=== PATIENT | female | born 1935 | race Caucasian/White ===

== ENCOUNTER 2017-03-21 04:13 | Inpatient (IN) | payer OTHER ==
[~2017-03-21] VITALS: Ht 162.6 cm; Wt 84.5 kg
[2017-03-21 04:57] LABS: RED BLOOD COUNT 5.1 M/UL (4.00-5.10); WHITE BLOOD COUNT 11.6 K/UL (4.5-11.0)
[2017-03-21] MEDS ORDERED: SYNTHROID112 MCG PO (13:34)
[2017-03-21] MEDS ORDERED: PAXIL20 MG PO (13:34)
[2017-03-21] MEDS ORDERED: NORVASC 5 MG TAB5 MG PO (13:36)
[2017-03-21] MEDS ORDERED: VALSARTAN-HCTZ1 EAC1 PO (13:36)
[2017-03-21] MEDS ORDERED: ATIVAN 1MG TABLE1 MG PO (13:37)
[2017-03-21] MEDS ORDERED: CIPRO500 MG PO (13:38)
[2017-03-21] MEDS ORDERED: MELOXICAM7.5 MG PO (13:38)
[2017-03-22 01:45] LABS: ACINETOBACTER BAUMANNII Not Detected (Negative); CANDIDA ALBICANS Not Detected (Negative); CANDIDA KRUSEI Not Detected (Negative); CANDIDA TROPICALIS Not Detected (Negative); ENTEROCOCCUS Not Detected (Negative); ESCHERICHIA COLI Not Detected (Negative); HAEMOPHILUS INFLUENZAE Not Detected (Negative); KLEBSIELLA OXYTOCA Not Detected (Negative); KLEBSIELLA PNEUMONIAE Not Detected (Negative); KPC-CARBAPENEM-RESISTANCE GENE Not Detected (Negative); PROTEUS Not Detected (Negative); PSEUDOMONAS AERUGINOSA Not Detected (Negative); SERRATIA MARCESANS Not Detected (Negative); STAPHYLOCOCCUS AUREUS Not Detected (Negative); STREP AGALACTIAE (GROUP B) Not Detected (Negative); STREP PYOGENES (GROUP A) Not Detected (Negative); STREPTOCOCCUS Not Detected (Negative); vanA/B (VANCOMYCIN RESIST GENE Not Detected (Negative)
[2017-03-22 03:47] LABS: STAPHYLOCOCCUS DETECTED (Negative); mecA (METHICILLIN RESIST GENE DETECTED (Negative)
[2017-03-22 04:42] LABS: HEMOGLOBIN 13.7 gm/dl (12.3-15.3); RED BLOOD COUNT 5.08 M/UL (4.00-5.10)
[2017-03-22 04:50] LABS: BUN/CREATININE RATIO 68 (0-10)
--- NOTE | 2017-03-22 17:41 | NUR ---
PT SWITCHED TO [facility].
[2017-03-24 07:57] LABS: BUN/CREATININE RATIO 28 (0-10)
[2017-03-25 05:48] LABS: HEMOGLOBIN 13.8 gm/dl (12.3-15.3); RED BLOOD COUNT 5.13 M/UL (4.00-5.10); WHITE BLOOD COUNT 4.3 K/UL (4.5-11.0)
[2017-03-25 06:12] LABS: BUN/CREATININE RATIO 14 (0-10)
[2017-03-25 11:05] LABS: BUN/CREATININE RATIO 18 (0-10)
[2017-03-26 05:52] LABS: BUN/CREATININE RATIO 23 (0-10)
[2017-03-26] MEDS ORDERED: DIAMOX 250 MG250 MG PO (19:39)
[2017-03-26] MEDS ORDERED: CEFUROXIME500 MG PO (19:40)
[2017-03-26] MEDS ORDERED: BACITRACIN OINT30 GM TOP (19:40)
== END 2017-03-26 20:20 | disposition home or self-care (01) | DRG 189 ==
LOC: ER1 04:13 → M/S 08:19 → CCU 08:19 → ZEROF 08:19 → CCU 15:31 → M/S 03-23 17:44
PROVIDERS: Hospitalist; Internal Medicine; Internal Medicine Pulmonary Disease; Student in an Organized Health Care Education/Training Program; ADMIT Emergency Medicine
PROC: 5A09457 Assistance with Respiratory Ventilation, 24-96 Consecutive Hours, Continuous Positive Airway Pressure (ICD-10-PCS; principal; 2017-03-21)
DX: J96.21 Acute and chronic respiratory failure with hypoxia (principal); G93.41 Metabolic encephalopathy; I50.33 Acute on chronic diastolic (congestive) heart failure; E87.0 Hyperosmolality and hypernatremia; I13.0 Hypertensive heart and chronic kidney disease with heart failure and stage 1 through stage 4 chronic kidney disease, or unspecified chronic kidney disease; E87.1 Hypo-osmolality and hyponatremia; J44.1 Chronic obstructive pulmonary disease with (acute) exacerbation; E66.2 Morbid (severe) obesity with alveolar hypoventilation; J96.22 Acute and chronic respiratory failure with hypercapnia; L89.150 Pressure ulcer of sacral region, unstageable; E87.6 Hypokalemia; E83.51 Hypocalcemia; E03.9 Hypothyroidism, unspecified; F41.9 Anxiety disorder, unspecified; K21.9 Gastro-esophageal reflux disease without esophagitis; M19.91 Primary osteoarthritis, unspecified site; Z80.1 Family history of malignant neoplasm of trachea, bronchus and lung; Z83.3 Family history of diabetes mellitus; N18.9 Chronic kidney disease, unspecified; Z74.01 Bed confinement status; Z96.652 Presence of left artificial knee joint; E78.5 Hyperlipidemia, unspecified; R39.2 Extrarenal uremia
CPT/HCPCS: ECHO; 36415; 36600; 51702; 70450; 71010; 80048; 80053; 80202; 81001; 82140; 82150; 82533; 82550; 82553; 82803; 82962; 83036; 83605; 83690; 83735; 83874; 83880; 84132; 84439; 84443; 84484; 85025; 85027; 85610; 85730; 87040; 87077; 87086; 87150; 87186; 93005; 93306; 94640; 94660; 94664; 96374; 96375; 99291; C9113; J0696; J1120; J1205; J1450; J1650; J1940; J3370; J7050; J7070

== ENCOUNTER 2017-04-11 09:29 | Inpatient (IN) | payer OTHER ==
[~2017-04-11] VITALS: Ht 160 cm; Wt 81.6 kg
[~2017-04-11 09:29] MED LIST: ATIVAN 1MG TABLE1 MG PO; BACITRACIN OINT30 GM TOP; CEFUROXIME500 MG PO; CIPRO500 MG PO; DIAMOX 250 MG250 MG PO; MELOXICAM7.5 MG PO; NORVASC 5 MG TAB5 MG PO; PAXIL20 MG PO; SYNTHROID112 MCG PO; VALSARTAN-HCTZ1 EAC1 PO
[2017-04-11 10:30] LABS: RED BLOOD COUNT 5.49 M/UL (4.00-5.10)
[2017-04-11 10:50] LABS: BUN/CREATININE RATIO 53 (0-10)
[2017-04-11] MEDS ORDERED: DIGOX250 MCG PO (18:30)
[2017-04-11] MEDS ORDERED: NORVASC 5 MG TAB5 MG PO (18:31)
[2017-04-11] MEDS ORDERED: SYNTHROID112 MCG PO (18:31)
[2017-04-11] MEDS ORDERED: VALSARTAN-HCTZ1 EAC1 PO (18:32)
[2017-04-11] MEDS ORDERED: MELOXICAM7.5 MG PO (18:33)
[2017-04-11] MEDS ORDERED: ATIVAN1 MG PO (18:33)
[2017-04-11] MEDS ORDERED: PAROXETINE HCL20 MG PO (18:34)
[2017-04-11] MEDS ORDERED: ASPIR-TRIN325 MG PO (18:34)
[2017-04-12 03:53] LABS: RED BLOOD COUNT 5.17 M/UL (4.00-5.10)
[2017-04-12 03:58] LABS: WHITE BLOOD COUNT 11.5 K/UL (4.5-11.0)
[2017-04-12 04:11] LABS: BUN/CREATININE RATIO 40 (0-10)
[2017-04-12] MEDS ORDERED: DIAMOX 250 MG250 MG PO (18:18)
[2017-04-13 05:47] LABS: BUN/CREATININE RATIO 44 (0-10)
[2017-04-14 04:21] LABS: HEMOGLOBIN 13.1 gm/dl (12.3-15.3); RED BLOOD COUNT 4.71 M/UL (4.00-5.10); WHITE BLOOD COUNT 9.3 K/UL (4.5-11.0)
[2017-04-14 05:46] LABS: BUN/CREATININE RATIO 37 (0-10)
[2017-04-15 03:38] LABS: HEMOGLOBIN 12.4 gm/dl (12.3-15.3); RED BLOOD COUNT 4.57 M/UL (4.00-5.10); WHITE BLOOD COUNT 7.3 K/UL (4.5-11.0)
[2017-04-15 03:55] LABS: BUN/CREATININE RATIO 48 (0-10)
[2017-04-16 03:40] LABS: HEMOGLOBIN 11.6 gm/dl (12.3-15.3); RED BLOOD COUNT 4.33 M/UL (4.00-5.10)
[2017-04-16 04:11] LABS: BUN/CREATININE RATIO 34 (0-10)
[2017-04-17 04:00] LABS: HEMOGLOBIN 11.1 gm/dl (12.3-15.3); RED BLOOD COUNT 4.11 M/UL (4.00-5.10)
[2017-04-17 04:11] LABS: BUN/CREATININE RATIO 43 (0-10)
[2017-04-18 03:27] LABS: HEMOGLOBIN 10.9 gm/dl (12.3-15.3); RED BLOOD COUNT 4.1 M/UL (4.00-5.10); WHITE BLOOD COUNT 4.3 K/UL (4.5-11.0)
[2017-04-18 03:50] LABS: BUN/CREATININE RATIO 40 (0-10)
[2017-04-21 04:44] LABS: BUN/CREATININE RATIO 53 (0-10)
[2017-04-21 10:47] LABS: HEMOGLOBIN 11.1 gm/dl (12.3-15.3); RED BLOOD COUNT 4.06 M/UL (4.00-5.10); WHITE BLOOD COUNT 4.4 K/UL (4.5-11.0)
== END 2017-04-22 19:32 | DRG 208 ==
LOC: ER1 09:29 → ZEROF 13:25 → CCU 13:25 → M/S 04-18 23:20
PROVIDERS: Family Medicine; Internal Medicine Infectious Disease; Internal Medicine Pulmonary Disease; Radiology Radiation Oncology; ADMIT Internal Medicine
PROC: 5A1945Z Respiratory Ventilation, 24-96 Consecutive Hours (ICD-10-PCS; principal; 2017-04-11)
PROC: 0BH17EZ Insertion of Endotracheal Airway into Trachea, Via Natural or Artificial Opening (ICD-10-PCS; principal; 2017-04-11)
PROC: 05HM33Z Insertion of Infusion Device into Right Internal Jugular Vein, Percutaneous Approach (ICD-10-PCS; 2017-04-14)
PROC: B543ZZA Ultrasonography of Right Jugular Veins, Guidance (ICD-10-PCS; 2017-04-14)
DX: J96.21 Acute and chronic respiratory failure with hypoxia (principal); G93.40 Encephalopathy, unspecified; J14 Pneumonia due to Hemophilus influenzae; I50.33 Acute on chronic diastolic (congestive) heart failure; R57.9 Shock, unspecified; J90 Pleural effusion, not elsewhere classified; E87.0 Hyperosmolality and hypernatremia; E66.2 Morbid (severe) obesity with alveolar hypoventilation; E46 Unspecified protein-calorie malnutrition; Z66 Do not resuscitate; J96.22 Acute and chronic respiratory failure with hypercapnia; I11.0 Hypertensive heart disease with heart failure; R53.1 Weakness; R56.9 Unspecified convulsions; E78.5 Hyperlipidemia, unspecified; E87.6 Hypokalemia; E03.9 Hypothyroidism, unspecified; D69.6 Thrombocytopenia, unspecified; F41.9 Anxiety disorder, unspecified; M19.90 Unspecified osteoarthritis, unspecified site; K21.9 Gastro-esophageal reflux disease without esophagitis; F32.9 Major depressive disorder, single episode, unspecified; Z96.652 Presence of left artificial knee joint; Z88.2 Allergy status to sulfonamides; Z83.3 Family history of diabetes mellitus; Z80.9 Family history of malignant neoplasm, unspecified; Z79.82 Long term (current) use of aspirin; Z79.899 Other long term (current) drug therapy
CPT/HCPCS: 31500; 36415; 36600; 70450; 71010; 76705; 80048; 80053; 80076; 80162; 80202; 81001; 82140; 82533; 82550; 82553; 82803; 82962; 83735; 83874; 83880; 84100; 84132; 84439; 84443; 84484; 85025; 85027; 85610; 85730; 87040; 87070; 87077; 87086; 87205; 93005; 93970; 94002; 94003; 94640; 94660; 94664; 96365; 96367; 96375; 97110; 97116; 97530; 97535; 99291; A4628; C1751; C9113; J0330; J1120; J1335; J1644; J1650; J1940; J1956; J2060; J2250; J2405; J2543; J3010; J3370; J3480; J7030; J7040; J7050; J7070